=== PATIENT | female | born 1975 | race Caucasian/White ===

== ENCOUNTER 2016-05-07 17:35 | Emergency (ER) | payer OTHER ==
[2016-05-07] MEDS ORDERED: DEXAMETHASONE 4 MG/ML VIAL ONE (19:47)
[2016-05-07] MEDS ORDERED: DILAUDID 1 MG/ML AMP ONE (20:45)
[2016-05-07] MEDS ORDERED: oxyCODONE/APAP 10/325 TABLET ONE (22:08)
== END 2016-05-07 22:34 | disposition home or self-care (01) ==
LOC: ER 17:35
CPT/HCPCS: 36415 ×2; 72148 ×2; 80053 ×2; 85025 ×2; 96374 ×2; 96375 ×2; 99284; J1170